=== PATIENT | male | born 1955 | race Caucasian/White ===

== ENCOUNTER → 2019-06-23 | Outpatient (CLI) | payer OTHER ==
[~2019-06-23] MED LIST: ASPIRIN81 M1 PO; GLUCOPHAGE500 M1 PO; ZOCOR10 MG PO
--- NOTE | ~2019-06-23 | ST ---
[place], [place] EXERCISE STRESS TEST REPORT NAME: NORA MEADE UNIT #: [id number] ROOM: DOCTOR: KAE DUFF MD BIRTHDATE: [birth year] DOS: 06/23/2019 The patient was walked on the Percy protocol, duration of 6 minutes 30 seconds. Heart rate is 139, 87% predicted heart rate. Procedure terminated with completion of the protocol. Baseline cardiogram, sinus. With exercise, no new EKG changes and no chest pain. Blood pressure and heart rate response was normal. Nuclear images will be reported separately. KAE DUFF MD CM:STRESS:EXERCISE STRESS TEST REPORT [id number] KAE DUFF MD
--- NOTE | 2019-06-23 07:15 | NUR ---
INFORMED CONSENT OBTAINED FOR EXERCISE CARDIOLITE STRESS TEST WITH DR. DUFF. RESTING EKG NSR WITH A SUPINE HR OF 67 WITH BP OF 120/64 AND HR OF 69 WITH BP OF 110/66 IN STANDING POSITION. PT COMPLETED 6:30 OF A 2:00 LANCE PROTOCOL WITH COMPLETION OF 2:30 OF STAGE III AT 3.4 MPH AND 14% GRADE. REACHED A PEAK HR OF 140 WHICH IS 88% OF PREDICTED MAX WITH A PEAK BP OF 172/80. TEST TERMINATED BECAUSE OF FATIGUE. HAD NO CHEST PAIN OR ANY EKG CHANGES. HAS A GOOD EXERCISE TOLERANCE. LAST RECOVERY HR OF 92 WITH BP 132/62. TO NUCLEAR MEDICINE IN STABLE CONDITION FOR SCANNING.
== END | disposition home or self-care (01) ==
LOC: CARD 01:26
DX: R06.09 Other forms of dyspnea (principal); I25.10 Atherosclerotic heart disease of native coronary artery without angina pectoris; E11.9 Type 2 diabetes mellitus without complications; R06.02 Shortness of breath